=== PATIENT | female | born 1990 | race Asian ===

== ENCOUNTER 2018-01-04 12:33 | Emergency (ER) | END 2018-01-04 18:44 | disposition home or self-care (01) ==

== ENCOUNTER → 2018-06-10 | Outpatient (CLI) | payer BC ==
[~2018-06-10] MED LIST: HYDR-4011 PO; IBUP-1542 PO; SULF1TAB31 PO
== END | disposition home or self-care (01) ==
LOC: LAB 16:12 → EEVIPCON 16:12
PROVIDERS: ATTEND Internal Medicine
DX: E05.00 Thyrotoxicosis with diffuse goiter without thyrotoxic crisis or storm (principal)
CPT/HCPCS: 81003; 84439; 84443; 86376; 86706; 86735; 86762; 86787; 86803

== ENCOUNTER → 2018-12-09 | Outpatient (CLI) | payer BC | END | disposition home or self-care (01) | LOC: LAB 10:39 | PROVIDERS: ATTEND Internal Medicine | DX: E03.9 Hypothyroidism, unspecified (principal) | CPT/HCPCS: 80053; 83001; 83002; 83498; 84403; 84439; 84443; 84481; 85025 ==

== ENCOUNTER 2019-02-13 22:12 | Emergency (ER) | payer BC ==
[~2019-02-13] VITALS: Ht 149.9 cm; Wt 51.3 kg
[~2019-02-13 22:12] MED LIST changes: +CEPH-443 PO; +ONDA8TAB14 PO
[2019-02-13 22:14] VITALS: Ht 149.9 cm; Wt 51.3 kg
[2019-02-13] MEDS ORDERED: ONDANSETRON 4 MG INJ IV STA (23:26)
[2019-02-13] MEDS ORDERED: KETOROLAC 30 MG INJ IV STA (23:26)
[2019-02-13] MEDS ORDERED: ACETAMINOPHEN 325 MG TAB PO STA (23:26)
[2019-02-13] MEDS ORDERED: SODIUM CHLORIDE 0.9% 1L BAG IV* STA (23:26)
[2019-02-14] MEDS ORDERED: CEFTRIAXONE 1 GM/50 ML (PMX) 50 ML IVPB ONE (01:30)
[2019-02-14 01:55] VITALS: BP 96/71; PULSE 85; RESP 20
== END 2019-02-14 02:30 | disposition home or self-care (01) ==
LOC: E/R 22:12
DX: N12 Tubulo-interstitial nephritis, not specified as acute or chronic (principal); R10.9 Unspecified abdominal pain
CPT/HCPCS: 71045; 74176; 80053; 81001; 81025; 83605; 84484; 85025; 85610; 85730; 87040; 87086; 96374; 96375; 99285; J0696; J1885; J2405; J7030; 81003